=== PATIENT | female | born 1970 | race Caucasian/White ===

== ENCOUNTER 2020-04-24 16:27 | Emergency (ER) | payer OTHER ==
[~2020-04-24] VITALS: Ht 170.2 cm; Wt 104.3 kg
[2020-04-24 16:37] VITALS: Ht 170.2 cm; Wt 104.3 kg
[2020-04-24 17:54] LABS: BASOPHIL % 0.3 % (0-2); PLATELET COUNT 250 x10^3mcL (130-400); RED CELL DISTRIBUTION WIDTH 13.8 % (11.5-14.5)
[2020-04-24 18:36] LABS: CARBON DIOXIDE 23.9 mmol/L (21-32); CREATININE SERUM 1.1 mg/dL (0.6-1.0); POTASSIUM SERUM 4.6 mmol/L (3.5-5.1)
[2020-04-24 18:40] LABS: BILIRUBIN TOTAL 1.66 mg/dL (0.20-1.00); CHOLESTEROL/HDL RATIO 3.1; TOTAL PROTEIN, SERUM 7.1 g/dL (6.4-8.2)
[2020-04-24 18:41] LABS: ALBUMIN 2.9 g/dL (3.4-5.0)
[2020-04-24 19:18] LABS: UA SPECIFIC GRAVITY >=1.030 (1.005-1.035); microscopic required? YES; urine erythrocyte 3+ (NEGATIVE)
[2020-04-24 20:58] VITALS: BP 126/68
== END 2020-04-24 20:58 | disposition home or self-care (01) ==
LOC: ED 16:27
PROVIDERS: Specialist
DX: R65.10 Systemic inflammatory response syndrome (SIRS) of non-infectious origin without acute organ dysfunction (principal); N39.0 Urinary tract infection, site not specified; E11.65 Type 2 diabetes mellitus with hyperglycemia; Z98.890 Other specified postprocedural states
CPT/HCPCS: 82962; J0696; J2405; J7030

== ENCOUNTER 2020-04-26 18:34 | Inpatient (IN) | payer OTHER ==
[~2020-04-26] VITALS: Ht 170.2 cm; Wt 99.8 kg
[2020-04-26 19:29] LABS: BASOPHIL % 0.3 % (0-2); PLATELET COUNT 263 x10^3mcL (130-400); RED CELL DISTRIBUTION WIDTH 13.8 % (11.5-14.5)
[2020-04-26 19:38] LABS: CALCIUM 8.9 mg/dL (8.5-10.1); CARBON DIOXIDE 21.6 mmol/L (21-32); CHLORIDE SERUM 99 mmol/L (98-107); CREATININE SERUM 0.9 mg/dL (0.6-1.0); GFR1 > 60 mL/min; GLUCOSE SERUM 265 mg/dL (74-106); POTASSIUM SERUM 4.4 mmol/L (3.5-5.1); SODIUM SERUM 133 mmol/L (136-145)
[2020-04-26 19:43] LABS: ALKALINE PHOSPHATASE 99 U/L (46-116); ALT/SGPT 25 U/L (14-59); AST/SGOT 13 U/L (15-37); BILIRUBIN TOTAL 0.71 mg/dL (0.20-1.00); TOTAL PROTEIN, SERUM 7.1 g/dL (6.4-8.2)
[2020-04-26 19:44] LABS: ALBUMIN 2.5 g/dL (3.4-5.0)
[2020-04-26 21:05] LABS: microscopic required? YES; urine erythrocyte 3+ (NEGATIVE)
[2020-04-26 22:01] LABS: PHOSPHOROUS 2.1 mg/dL (2.5-4.9)
[2020-04-27 00:02] VITALS: BP 126/62
[2020-04-27 00:08] VITALS: Ht 170.2 cm; Wt 99.8 kg
[2020-04-27 04:56] VITALS: BP 136/66
[2020-04-27 06:59] LABS: BASOPHIL % 0.3 % (0-2); PLATELET COUNT 206 x10^3mcL (130-400); RED CELL DISTRIBUTION WIDTH 13.9 % (11.5-14.5)
[2020-04-27 07:12] LABS: CALCIUM 8.4 mg/dL (8.5-10.1); CARBON DIOXIDE 21.5 mmol/L (21-32); CHLORIDE SERUM 104 mmol/L (98-107); CREATININE SERUM 0.9 mg/dL (0.6-1.0); GFR1 > 60 mL/min; GLUCOSE SERUM 225 mg/dL (74-106); MAGNESIUM 2.2 mg/dL (1.8-2.4); PHOSPHOROUS 2.7 mg/dL (2.5-4.9); POTASSIUM SERUM 3.5 mmol/L (3.5-5.1); SODIUM SERUM 136 mmol/L (136-145)
[2020-04-27 07:20] VITALS: BP 136/67
[2020-04-27 12:51] VITALS: BP 150/83
[2020-04-27 16:45] VITALS: BP 144/74
[2020-04-27 21:16] VITALS: BP 148/77
[2020-04-28 05:40] VITALS: BP 151/73
[2020-04-28 06:34] LABS: CALCIUM 8.3 mg/dL (8.5-10.1); CARBON DIOXIDE 22.7 mmol/L (21-32); CHLORIDE SERUM 106 mmol/L (98-107); CREATININE SERUM 0.7 mg/dL (0.6-1.0); GFR1 > 60 mL/min; GLUCOSE SERUM 155 mg/dL (74-106); MAGNESIUM 2.1 mg/dL (1.8-2.4); PHOSPHOROUS 3.3 mg/dL (2.5-4.9); POTASSIUM SERUM 4.5 mmol/L (3.5-5.1); SODIUM SERUM 139 mmol/L (136-145)
[2020-04-28 06:36] LABS: BASOPHIL % 0.2 % (0-2); PLATELET COUNT 219 x10^3mcL (130-400); RED CELL DISTRIBUTION WIDTH 13.8 % (11.5-14.5)
[2020-04-28 08:37] VITALS: BP 153/82
[2020-04-28 17:46] VITALS: BP 143/71
[2020-04-28 21:04] VITALS: BP 160/58
[2020-04-29 05:37] VITALS: BP 157/60
[2020-04-29] MEDS ORDERED: LEVAQUIN500 M1 PO (08:05)
[2020-04-29 08:15] VITALS: BP 171/76
[2020-04-29 09:25] VITALS: BP 171/76
== END 2020-04-29 10:00 | disposition home or self-care (01) | DRG 871 ==
LOC: ED 18:34 → MU 21:28
PROVIDERS: Emergency Medicine; ADMIT Internal Medicine; ATTEND Internal Medicine
DX: A41.51 Sepsis due to Escherichia coli [E. coli] (principal); E43 Unspecified severe protein-calorie malnutrition; N12 Tubulo-interstitial nephritis, not specified as acute or chronic; E87.1 Hypo-osmolality and hyponatremia; E11.9 Type 2 diabetes mellitus without complications; E83.39 Other disorders of phosphorus metabolism; Z90.49 Acquired absence of other specified parts of digestive tract; Z79.899 Other long term (current) drug therapy; Z68.34 Body mass index [BMI] 34.0-34.9, adult
CPT/HCPCS: 82962; 87046; 87046-59; C9113; G0378; J0696; J1815; J1885; J1956; J2270; J2405; J7030; J7060